=== PATIENT | female | born 1995 | race Caucasian/White ===

== ENCOUNTER 2017-07-26 22:56 | Observation (INO) | payer BC ==
--- NOTE | 2017-07-27 00:17 | ER Document Report ---
ED GI/ - General Mode of Arrival: Ambulatory Information source: Patient TRAVEL OUTSIDE OF THE [place] IN LAST 30 DAYS: No <MIGDALIA MOCTEZUMA - Last Filed: 07/27/17 06:02> <MICHELLE HUMMEL - Last Filed: 07/27/17 07:09> - General Chief Complaint: Abdominal Pain Stated Complaint: ABDOMINAL PAIN Time Seen by Provider: 07/26/17 23:53 Notes: Patient is a 21 year old female presenting to the emergency department complaining of abdominal pain with associated symptoms of nausea, vomiting and diarrhea onset today. Patient states that her pain was onset after she ate today around 1600 and she initially thought she ate something bad. Patient describes her pain as extreme and diffuse which is exacerbated with any movement , talking and urinating. Patient denies any trouble defecating. Patient states she has attempted to take GasX to alleviate her pain. Patient currently takes Prozac and Hydroxyzine. Family at bedside state they are from [place] and only here visiting. (MIGDALIA MOCTEZUMA) - Related Data Allergies/Adverse Reactions: No Known Allergies Allergy (Unverified 07/26/17 23:00) Past Medical History - General Information source: Patient - Social History Smoking Status: Never Smoker Cigarette use (# per day): No Chew tobacco use (# tins/day): No Smoking Education Provided: No Frequency of alcohol use: Occasional Family History: Reviewed & Not Pertinent Psychiatric Medical History: Reports: Hx Anxiety <MIGDALIA MOCTEZUMA - Last Filed: 07/27/17 06:02> Review of Systems - Review of Systems Constitutional: No symptoms reported EENT: No symptoms reported Cardiovascular: No symptoms reported Respiratory: No symptoms reported Gastrointestinal: See HPI, Abdominal pain, Diarrhea, Nausea, Vomiting Genitourinary: No symptoms reported Female Genitourinary: No symptoms reported Musculoskeletal: No symptoms reported Skin: No symptoms reported Hematologic/Lymphatic: No symptoms reported Neurological/Psychological: No symptoms reported <MIGDALIA MOCTEZUMA - Last Filed: 07/27/17 06:02> Physical Exam <MIGDALIA MOCTEZUMA - Last Filed: 07/27/17 06:02> <MICHELLE HUMMEL - Last Filed: 07/27/17 07:09> - Vital signs Vitals: Temp Pulse Resp BP Pulse Ox 98.1 F 78 12 109/67 97 07/26/17 23:04 07/26/17 23:04 07/26/17 23:04 07/26/17 23:04 07/26/17 23:04 - Notes Notes: GENERAL: Alert, interacts well. No acute distress. HEAD: Normocephalic, atraumatic. EYES: Pupils equal, round, and reactive to light. Extraocular movements intact. ENT: Oral mucosa moist, tongue midline. NECK: Full range of motion. Supple. Trachea midline. LUNGS: Clear to auscultation bilaterally, no wheezes, rales, or rhonchi. No respiratory distress. HEART: Regular rate and rhythm. No murmurs, gallops, or rubs. ABDOMEN: Soft, exquisitely tender to palpation to the LUQ and epigastric area. Voluntary guarding. Non-distended. Bowel sounds present in all 4 quadrants. EXTREMITIES: Moves all 4 extremities spontaneously. No edema, radial, and dorsalis pedis pulses 2/4 bilaterally. No cyanosis. NEUROLOGICAL: Alert and oriented x3. Normal speech. PSYCH: Anxious. SKIN: Warm, dry, and normal turgor. No rashes or lesions noted. PELVIC: No cervical motion tenderness. Left adnexal tenderness to palpation. Normal external and internal genital exam. No discharge from cervical os. (MIGDALIA MOCTEZUMA) Course - Laboratory Result Diagrams: 07/27/17 00:50 07/27/17 00:50 <MIGDALIA MOCTEZUMA - Last Filed: 07/27/17 06:02> - Laboratory Result Diagrams: 07/27/17 00:50 07/27/17 00:50 <MICHELLE HUMMEL - Last Filed: 07/27/17 07:09> - Re-evaluation Re-evalutation: 07/27/17 02:23 CBC shows leukocytosis of 14.8, CMP unremarkable, lipase normal, urinalysis normal, test negative. CT scan of the abdomen pelvis with IV and oral contrast has been ordered. Abdominal exam is concerning but very nonspecific. Patient was just rechecked, updated and all labs, states her pain is the same. We will try morphine now. Patient continues to be n.p.o. No vomiting here. Nausea treated with Zofran. 07/27/17 06:03 CBC shows leukocytosis of 14.8, CMP grossly unremarkable, test negative, urinalysis does not show any signs blood or infection, wet prep does not show any trichomonas, white blood cells or yeast, gonorrhea and chlamydia are pending. CT scan of the abdomen and pelvis shows a normal appendix but there is a 5.2 cm thick-walled right adnexal fluid collection differential includes tubo-ovarian abscess, hemorrhagic ovarian cyst or ovarian neoplasm. Recommend correlating with pelvic ultrasound. Patient has been sent for pelvic ultrasound. 07/27/17 06:59 Gonorrhea and chlamydia not detected. Pelvic ultrasound shows good blood flow to the bilateral ovaries, there is a likely benign cyst in the right ovary, but radiology recommends outpatient follow-up with a MRI for further characterization. Patient had a near syncopal episode in the bathroom while trying to urinate and she became quite hypotensive and pale, despite fluid bolus patient is still hypotensive with a blood pressure of 94/55 and still is quite tender on her normal abdominal examination. I am not certain what is causing her pain and hypotension at this time. I did discuss the patient with Dr. Powell and discussed that I feel the patient needs to be brought in for observation and repeat abdominal examinations and possible ex lap should her hypotension and pain persist. He is agreeable to bring the patient in for observation. Patient and boyfriend and boyfriend's mother are all aware of plan and agreeable to it. Patient will continue to be n.p.o. (MICHELLE HUMMEL) - Vital Signs Vital signs: Temp Pulse Resp BP Pulse Ox 97.6 F 78 18 94/48 L 98 07/27/17 04:42 07/26/17 23:04 07/27/17 06:32 07/27/17 06:32 07/27/17 06:32 - Laboratory Laboratory results interpreted by me: 07/27/17 07/27/17 00:50 00:50 WBC 14.8 H Absolute Neutrophils 9.8 H Creatinine 0.50 L Discharge <MIGDALIA MOCTEZUMA - Last Filed: 07/27/17 06:02> - Discharge Admitting Provider: [facility] Admitted: Telemetry <MICHELLE HUMMEL - Last Filed: 07/27/17 07:09> - Discharge Clinical Impression: RLQ abdominal pain, Ovarian mass, right Hypotension Qualifiers: Hypotension type: unspecified hypotension type Qualified Code(s): I95.9 - Hypotension, unspecified Disposition: ADMITTED OBSERVATION Scribe Attestation: 07/27/17 07:09 I personally performed the services described in the documentation, reviewed and edited the documentation which was dictated to the scribe in my presence, and it accurately records my words and actions. (MICHELLE HUMMEL)
[2017-07-27] MEDS ORDERED: HYDROMORPHONE HCL INJ/PF 2 MG/ML AMPULE IV ONE (00:42)
[2017-07-27] MEDS ORDERED: ONDANSETRON HCL INJ/PF 4 MG/2 ML SDV IV ONE ×2 (00:42→04:36)
[2017-07-27 01:12] LABS: ABSOLUTE EOSINOPHILS # (AUTO) 0.1 10^3/uL (0.0-0.6); ABSOLUTE LYMPHOCYTES (AUTO) 3.7 10^3/uL (0.5-4.7); ABSOLUTE MONOCYTES (AUTO) 1.1 10^3/uL (0.1-1.4); ABSOLUTE NEUT (AUTO) 9.8 10^3/uL (1.7-8.2); BASOPHILS % (AUTO) 0.3 % (0-2); EOSINOPHILS % (AUTO) 0.7 % (0-6); HEMATOCRIT 37.1 % (36.0-47.0); HEMOGLOBIN 12.3 g/dL (12.0-15.5); LYMPHOCYTES % (AUTO) 25.2 % (13-45); MEAN CORPUSCULAR HEMOGLOBIN 28.8 pg (27.0-33.4); MEAN CORPUSCULAR VOLUME 87 fl (80-97); MONOCYTES % (AUTO) 7.5 % (3-13); PLATELET COUNT 275 10^3/uL (150-450); RED BLOOD COUNT 4.26 10^6/uL (3.72-5.28); RED CELL DISTRIBUTION WIDTH 13.8 % (11.5-14.0); SEGMENTED NEUTROPHILS % (AUTO) 66.3 % (42-78); TOTAL CELLS COUNTED % (AUTO) 100 %; WHITE BLOOD COUNT 14.8 10^3/uL (4.0-10.5)
[2017-07-27 01:16] LABS: APPEARANCE,URINE SLIGHTLY-CLOUDY; BILIRUBIN,URINE NEGATIVE (NEGATIVE); COLOR,URINE YELLOW; GLUCOSE, URINE NEGATIVE (NEGATIVE); KETONES,URINE NEGATIVE (NEGATIVE); LEUKOCYTE ESTERASE,URINE NEGATIVE (NEGATIVE); NITRITE,URINE NEGATIVE (NEGATIVE); PROTEIN,URINE NEGATIVE (NEGATIVE); URINE SPECIFIC GRAVITY 1.023; UROBILINOGEN,URINE NEGATIVE mg/dL (<2.0)
[2017-07-27 01:21] LABS: ALANINE AMINOTRANSFERASE 25 U/L (9-52); ALBUMIN 4.2 g/dL (3.5-5.0); ALKALINE PHOSPHATASE 58 U/L (38-126); ANION GAP 14 (5-19); ASPARTATE AMINO TRANSFERASE 18 U/L (14-36); BILIRUBIN,DIRECT 0.2 mg/dL (0.0-0.4); BILIRUBIN,TOTAL 0.7 mg/dL (0.2-1.3); BLOOD UREA NITROGEN 9 mg/dL (7-20); CALCIUM 9.5 mg/dL (8.4-10.2); CARBON DIOXIDE 24 mmol/L (22-30); CHLORIDE 104 mmol/L (98-107); GLUCOSE 87 mg/dL (75-110); LIPASE 88.2 U/L (23-300); SODIUM 141.8 mmol/L (137-145); TOTAL PROTEIN 7.2 g/dL (6.3-8.2)
[2017-07-27] MEDS ORDERED: MORPHINE SULFATE 10 MG/ML INJ IV ONE (02:22)
--- NOTE | 2017-07-27 03:40 | RADIOLOGY REPORT (SQ) ---
EXAM DESCRIPTION: CT ABDOMEN AND PELVIS WITH CONTRAST CLINICAL HISTORY: diffuse abd pain, worst in LUQ and epigastrum COMPARISON: None Available. TECHNIQUE: CT of the abdomen and pelvis performed following IV administration of 77 mL of Isovue-370. Delayed images obtained. DLP: 889.90 mGycm FINDINGS: Lung Bases: The visualized lung bases are clear. Bones: No destructive bone lesions identified. Abdomen: Liver: The liver has normal size and density. No intrahepatic mass or biliary dilatation. Gallbladder: No calcified gallstones. Spleen, Pancreas, and Adrenal Glands: The spleen, pancreas, and adrenal glands are unremarkable. Kidneys: The kidneys have normal size and contour without evidence of solid mass or hydronephrosis. Vasculature: The aorta and IVC have normal caliber and position. The portal vein is patent. The proximal visceral and renal arteries are patent. Stomach: The stomach and duodenum have normal course. Other: No free intraperitoneal air. Small amount of free fluid. Pelvis: Bladder: Urinary bladder is unremarkable. Bowel: No dilated loops of large or small bowel. Appendix: Normal appendix. Pelvis: Thick-walled right adnexal fluid collection measuring 4.3 x 3.1 x 5.2 cm. IMPRESSION: 1. There is a 5.2 cm thick-walled right adnexal fluid collection. The differential considerations include hemorrhagic ovarian cyst, tubo-ovarian abscess, or ovarian neoplasm. Correlation with pelvic ultrasound recommended. 2. Small amount of free pelvic fluid. This exam was performed according to our departmental dose-optimization program, which includes automated exposure control, adjustment of the mA and/or kV according to patient size and/or use of iterative reconstruction technique.
[2017-07-27] MEDS ORDERED: NORMAL SALINE 1000 ML 1,000 ML IV ONE (04:36)
[2017-07-27 05:15] LABS: RBCS (WET MOUNT) RARE RBCS SEEN; T.VAGINALIS (WET MOUNT) NO TRICHOMONAS SEEN; WBCS (WET MOUNT) NO WBCS SEEN; YEAST (WET MOUNT) NO YEAST SEEN
--- NOTE | 2017-07-27 06:36 | RADIOLOGY REPORT (SQ) ---
EXAM DESCRIPTION: Complete pelvic ultrasound CLINICAL HISTORY: 21 years Female, adnexal mass COMPARISON: CT of the abdomen and pelvis performed same day. TECHNIQUE: Complete pelvic ultrasound with transvaginal vaginal and transabdominal imaging. FINDINGS: The uterus measures 8.2 x 4.3 x 4.5 cm. Endometrial thickness of 0.5 cm. The cervix measures 2.8 cm. No myometrial mass. Small amount of free pelvic fluid. The left ovary measures 4.8 x 2.4 x 2.2 cm. The right ovary measures 5.3 x 4.5 x 4.4 cm. Within the ovary there is a complex cystic structure with decreased vascularity and lobular internal nodule. This measures 3.4 x 2.7 x 3.1 cm. Fluid collection spectral Doppler imaging demonstrates flow within the ovaries bilaterally. IMPRESSION: 1. In the right ovary there is a 3.4 cm probably benign indeterminate cyst with a nonvascular nodule. MRI pelvis with contrast recommended for further characterization. This may represent a hemorrhagic cyst. Other etiology not excluded.
[2017-07-27 06:43] LABS: CHLAM PCR NOT DETECTED (NOT DETECT); GON PCR NOT DETECTED (NOT DETECT)
[2017-07-27] MEDS ORDERED: ZOLPIDEM TARTRATE 5 MG TABLET PO PRN (10:49)
[2017-07-27] MEDS ORDERED: ACETAMINOPHEN WITH CODEINE #3 TABLET PO PRN ×2 (10:49)
[2017-07-27] MEDS ORDERED: IBUPROFEN 800 MG TABLET PO SCH (14:00)
[2017-07-27 16:05] LABS: ABSOLUTE EOSINOPHILS # (AUTO) 0.1 10^3/uL (0.0-0.6); ABSOLUTE LYMPHOCYTES (AUTO) 2.1 10^3/uL (0.5-4.7); ABSOLUTE MONOCYTES (AUTO) 0.9 10^3/uL (0.1-1.4); BASOPHILS % (AUTO) 0.3 % (0-2); EOSINOPHILS % (AUTO) 0.7 % (0-6); HEMATOCRIT 30.4 % (36.0-47.0); HEMOGLOBIN 10.4 g/dL (12.0-15.5); LYMPHOCYTES % (AUTO) 26.2 % (13-45); MEAN CORPUSCULAR HEMOGLOBIN 29.5 pg (27.0-33.4); MEAN CORPUSCULAR HGB CONC 34.2 g/dL (32.0-36.0); MEAN CORPUSCULAR VOLUME 86 fl (80-97); MONOCYTES % (AUTO) 10.6 % (3-13); PLATELET COUNT 220 10^3/uL (150-450); RED BLOOD COUNT 3.53 10^6/uL (3.72-5.28); RED CELL DISTRIBUTION WIDTH 13.8 % (11.5-14.0); SEGMENTED NEUTROPHILS % (AUTO) 62.2 % (42-78); TOTAL CELLS COUNTED % (AUTO) 100 %; WHITE BLOOD COUNT 8.1 10^3/uL (4.0-10.5)
[2017-07-27] MEDS ORDERED: DOCUSATE SODIUM 100 MG CAPSULE PO SCH (18:00)
[2017-07-27] MEDS ORDERED: LOPERAMIDE HCL 2 MG CAPSULE PO PRN (18:51)
[2017-07-27] MEDS ORDERED: (PENDING PHARMACY ID) (Hydroxyzine Hcl [Atarax 25 Mg Tablet] 25 MG) PO PRN (18:52)
[2017-07-27] MEDS ORDERED: HYDROXYZINE HCL 10 MG TABLET PO PRN (19:02)
--- NOTE | 2017-07-27 19:09 | PDOC H&P ---
History of Present Illness Admission Date/PCP: 07/27/17 08:20 Patient complains of: diarrhea and abdominal pain History of Present Illness: LARRY COLES is a 21 year old female who presented to the ER with c/o nausea and one episode of vomiting. Having abdominal pain that is worse when lying on her side or stomach. Began having diarrhea while in the ER. CT scan and sono with 3 cm ovarian cyst. Most likely hemorrhagic Past Medical History Medical History: Other - indicates a history of persistant hypotension Cardiac Medical History: Reports: None Past Surgical History Past Surgical History: Reports: None Social History Smoking Status: Never Smoker Frequency of Alcohol Use: Occasional Hx Recreational Drug Use: No Hx Prescription Drug Abuse: No - Advance Directive Resuscitation Status: Full Code Family History Family History: Reviewed & Not Pertinent Parental Family History Reviewed: Yes Children Family History Reviewed: Yes Sibling(s) Family History Reviewed.: Yes Medication/Allergy Home Medications: Fluoxetine HCl [Prozac 20 mg Capsule] 20 mg PO BID 07/27/17 Hydroxyzine HCl [Atarax 25 mg Tablet] 25 mg PO HSP PRN 07/27/17 Omeprazole 20 mg PO DAILY 07/27/17 Allergies/Adverse Reactions: No Known Allergies Allergy (Unverified 07/26/17 23:00) Physical Exam - Physical Exam Vital Signs: Temp Pulse Resp BP Pulse Ox 98.5 F 73 16 89/48 L 100 07/27/17 16:27 07/27/17 16:27 07/27/17 16:27 07/27/17 16:27 07/27/17 16:27 Intake & Output 07/26/17 07/27/17 07/28/17 06:59 06:59 06:59 Intake Total 702 Balance 702 Result Laboratory Results: 07/27/17 15:55 07/27/17 15:55 WBC 8.1 RBC 3.53 L Hgb 10.4 L Hct 30.4 L MCV 86 MCH 29.5 MCHC 34.2 RDW 13.8 Plt Count 220 Seg Neutrophils % 62.2 Lymphocytes % 26.2 Monocytes % 10.6 Eosinophils % 0.7 Basophils % 0.3 Absolute Neutrophils 5.0 Absolute Lymphocytes 2.1 Absolute Monocytes 0.9 Absolute Eosinophils 0.1 Absolute Basophils 0.0 Impressions: Abdomen/Pelvis CT 07/27/17 00:10 IMPRESSION: 1. There is a 5.2 cm thick-walled right adnexal fluid collection. The differential considerations include hemorrhagic ovarian cyst, tubo-ovarian abscess, or ovarian neoplasm. Correlation with pelvic ultrasound recommended. 2. Small amount of free pelvic fluid. This exam was performed according to our departmental dose-optimization program, which includes automated exposure control, adjustment of the mA and/or kV according to patient size and/or use of iterative reconstruction technique. Pelvis Ultrasound 07/27/17 04:03 IMPRESSION: 1. In the right ovary there is a 3.4 cm probably benign indeterminate cyst with a nonvascular nodule. MRI pelvis with contrast recommended for further characterization. This may represent a hemorrhagic cyst. Other etiology not excluded. Assessment & Plan - Diagnosis (1) Gastroenteritis Is this a current diagnosis for this admission?: Yes (2) Hypotension Qualifiers: Hypotension type: unspecified hypotension type Qualified Code(s): I95.9 - Hypotension, unspecified Is this a current diagnosis for this admission?: Yes (3) Ovarian mass, right Is this a current diagnosis for this admission?: Yes (4) RLQ abdominal pain Is this a current diagnosis for this admission?: Yes - Time Time Spent: 30 to 50 Minutes Critical Time spent with patient: Less than 15 minutes - will observe patient and discharge in AM.
[2017-07-27] MEDS ORDERED: FLUOXETINE HCL 20 MG CAPSULE PO SCH (22:00)
[2017-07-28 00:39] VITALS: BP 97/52
[2017-07-28] MEDS ORDERED: LANSOPRAZOLE 15 MG TAB.RAP.DR PO SCH (06:00)
[2017-07-28] MEDS ORDERED: FLUOXETINE HCL 20 MG CAPSULE PO SCH (10:00)
== END 2017-07-27 23:53 | disposition home or self-care (01) ==
LOC: ER 22:56 → EH 07-27 08:20 → 2N 07-27 13:35
PROVIDERS: ADMIT Obstetrics & Gynecology; ATTEND Obstetrics & Gynecology
DX: K52.9 Noninfective gastroenteritis and colitis, unspecified (principal); I95.9 Hypotension, unspecified; R19.09 Other intra-abdominal and pelvic swelling, mass and lump; R10.31 Right lower quadrant pain; R55 Syncope and collapse; Z79.899 Other long term (current) drug therapy; Z32.02 Encounter for pregnancy test, result negative
CPT/HCPCS: 96376; 99285; 96361; 96374; 96375; 36415; 87210; 83690; 85025; 81025; 80053; 81001; 87491; 87591; 76856; 93976; 74177; G0378 ×2; J2270; J1170; J2405; J7030